=== PATIENT | male | born 1965 | race Caucasian/White ===

== ENCOUNTER 2021-08-08 13:22 | Inpatient (IN) | payer MEDICAID ==
[~2021-08-08] VITALS: Ht 185.4 cm; Wt 68.5 kg
[2021-08-08 13:26] VITALS: BP_SYST 139
[2021-08-08] MEDS ORDERED: AMPICILLIN SODIUM/SULBACTAM NA 1.5 GM in NS 50 ML IV ONE (15:15)
[2021-08-08] MEDS ORDERED: MORPHINE 4 MG INJ. 4 MG/ML VIAL IVP ONE (15:15)
[2021-08-08] MEDS ORDERED: AMPICILLIN SODIUM/SULBACTAM NA 1.5 GM VIAL ONE (15:23)
[2021-08-08 15:48] LABS: BASOPHILS # (AUTO) 0.1 K/uL (0.0-0.2); BASOPHILS % (AUTO) 0.6 % (0.0-2.0); EOSINOPHILS # (AUTO) 0.1 K/uL (0.0-0.4); EOSINOPHILS % (AUTO) 1.3 % (0.0-4.0); HEMATOCRIT 40.5 % (36-54); HEMOGLOBIN 13.5 g/dL (14.0-18.0); LYMPHOCYTES % (AUTO) 11.1 % (20.5-51.5); MEAN CORPUSCULAR HEMOGLOBIN 30 pg (27-31); MEAN CORPUSCULAR HGB CONC 33 % (32-36); MEAN CORPUSCULAR VOLUME 90 fL (79.0-98.0); MONOCYTES # (AUTO) 0.5 K/uL (0.0-1.0); MONOCYTES % (AUTO) 6.2 % (1.7-9.3); NEUTROPHILS % (AUTO) 80.8 % (40.0-70.0); PLATELET COUNT (AUTO) 295 K/uL (130-430); RED CELL DISTRIBUTION WIDTH 13.6 % (9.0-15.0); WHITE BLOOD COUNT (AUTO) 8.6 K/uL (4.8-10.8)
[2021-08-08 15:51] LABS: CALCIUM 7.9 mg/dL (8.4-11.0); CREATININE 2.21 mg/dL (0.55-1.30); POTASSIUM 4.4 mmol/L (3.5-5.1)
[2021-08-08 15:57] LABS: ALBUMIN 3.2 g/dL (3.4-4.8); TOTAL BILIRUBIN 0.2 mg/dL (0.0-1.0)
[2021-08-08] MEDS ORDERED: ONDANSETRON HCL 4 MG/2 ML VIAL IVP PRN (16:30)
[2021-08-08] MEDS ORDERED: MORPHINE 2 MG/ML INJ. SYRINGE IVP PRN (16:30)
[2021-08-08 17:46] VITALS: BP_SYST 132
[2021-08-08 20:04] VITALS: BP_SYST 133
[2021-08-08] MEDS ORDERED: PIPERACILLIN/TAZO 3.375 GM in NS 50 ML IV ONE (21:00)
[2021-08-08] MEDS ORDERED: NALOXONE HCL 0.4 MG/ML AMP (NARCAN) IVP PRN (22:30)
[2021-08-08] MEDS: MORPHINE 2 MG/ML INJ. SYRINGE IVP PRN (22:36)
[2021-08-08] MEDS ORDERED: PIPERACILLIN/TAZOBACTAM 3.375 GM/VIAL (ZOSYN) IV ONE (22:58)
[2021-08-09 00:15] VITALS: BP_SYST 157
[2021-08-09] MEDS: MORPHINE 2 MG/ML INJ. SYRINGE IVP PRN ×3 (02:39→10:21)
[2021-08-09 08:20] VITALS: BP_SYST 139
[2021-08-09 11:26] LABS: BASOPHILS % (AUTO) 0.7 % (0.0-2.0); EOSINOPHILS # (AUTO) 0.1 K/uL (0.0-0.4); EOSINOPHILS % (AUTO) 1.9 % (0.0-4.0); HEMATOCRIT 40.4 % (36-54); HEMOGLOBIN 13.4 g/dL (14.0-18.0); LYMPHOCYTES # (AUTO) 0.9 K/uL (1.0-5.5); MEAN CORPUSCULAR HEMOGLOBIN 30 pg (27-31); MEAN CORPUSCULAR HGB CONC 33 % (32-36); MEAN CORPUSCULAR VOLUME 90 fL (79.0-98.0); MONOCYTES # (AUTO) 0.6 K/uL (0.0-1.0); MONOCYTES % (AUTO) 8.8 % (1.7-9.3); NEUTROPHILS # (AUTO) 4.8 K/uL (1.8-7.7); NEUTROPHILS % (AUTO) 74.6 % (40.0-70.0); PLATELET COUNT (AUTO) 280 K/uL (130-430); RED CELL DISTRIBUTION WIDTH 13.3 % (9.0-15.0)
[2021-08-09 11:28] LABS: WHITE BLOOD COUNT (AUTO) 6.4 K/uL (4.8-10.8)
[2021-08-09 11:44] LABS: CALCIUM 8.1 mg/dL (8.4-11.0); CREATININE 2.17 mg/dL (0.55-1.30); POTASSIUM 4.6 mmol/L (3.5-5.1); TOTAL BILIRUBIN 0.4 mg/dL (0.0-1.0)
[2021-08-09 12:00] VITALS: BP_SYST 150
[2021-08-09] MEDS: MORPHINE 4 MG INJ. 4 MG/ML VIAL IVP PRN ×3 (14:11→23:06)
[2021-08-09 16:20] VITALS: BP_SYST 146
[2021-08-10 00:56] VITALS: BP_SYST 148
[2021-08-10 03:11] VITALS: BP_SYST 158
[2021-08-10] MEDS: MORPHINE 4 MG INJ. 4 MG/ML VIAL IVP PRN ×4 (03:19→18:06)
[2021-08-10 07:54] LABS: BASOPHILS % (AUTO) 0.6 % (0.0-2.0); EOSINOPHILS # (AUTO) 0.1 K/uL (0.0-0.4); EOSINOPHILS % (AUTO) 2.4 % (0.0-4.0); HEMATOCRIT 39.8 % (36-54); HEMOGLOBIN 13.2 g/dL (14.0-18.0); LYMPHOCYTES # (AUTO) 1.1 K/uL (1.0-5.5); LYMPHOCYTES % (AUTO) 19.7 % (20.5-51.5); MEAN CORPUSCULAR HEMOGLOBIN 30 pg (27-31); MEAN CORPUSCULAR HGB CONC 33 % (32-36); MEAN CORPUSCULAR VOLUME 89 fL (79.0-98.0); MONOCYTES # (AUTO) 0.6 K/uL (0.0-1.0); MONOCYTES % (AUTO) 10.1 % (1.7-9.3); NEUTROPHILS # (AUTO) 3.7 K/uL (1.8-7.7); NEUTROPHILS % (AUTO) 67.2 % (40.0-70.0); PLATELET COUNT (AUTO) 274 K/uL (130-430); RED BLOOD CELL COUNT(AUTO) 4.45 MIL/uL (4.2-6.2); RED CELL DISTRIBUTION WIDTH 13.4 % (9.0-15.0); WHITE BLOOD COUNT (AUTO) 5.5 K/uL (4.8-10.8)
[2021-08-10 07:56] LABS: CALCIUM 8.2 mg/dL (8.4-11.0); CREATININE 2.43 mg/dL (0.55-1.30); POTASSIUM 4.5 mmol/L (3.5-5.1)
[2021-08-10 08:00] VITALS: BP_SYST 158
[2021-08-10] MEDS: ENOXAPARIN SODIUM 40 MG/0.4 ML SYRINGE SUBCUT SCH ×2 (08:21→09:00)
[2021-08-10] MEDS: CEFEPIME 2 GM in D5W 100 ML IV ONE ×3 (13:28→18:07)
[2021-08-10] MEDS: LINEZOLID 300 ML IV ONE ×2 (13:50→18:07)
[2021-08-10] MEDS: CEFEPIME 2 GM in D5W 100 ML IV SCH (20:46)
[2021-08-10] MEDS ORDERED: NALOXONE HCL 0.4 MG/ML AMP (NARCAN) IVP PRN (21:00)
[2021-08-10] MEDS: LINEZOLID 300 ML IV SCH (21:00)
[2021-08-10] MEDS: HYDROmorphone 1 MG/ML INJ. CARTRIDGE IVP PRN (23:49)
[2021-08-11 00:30] VITALS: BP_SYST 151
[2021-08-11] MEDS: MORPHINE 2 MG/ML INJ. SYRINGE IVP PRN ×2 (02:18→22:55)
[2021-08-11] MEDS: HYDROmorphone 1 MG/ML INJ. CARTRIDGE IVP PRN ×4 (04:57→20:36)
[2021-08-11 08:00] VITALS: BP_SYST 156
[2021-08-11] MEDS: CEFEPIME 2 GM in D5W 100 ML IV SCH ×2 (08:13→20:36)
[2021-08-11] MEDS: ENOXAPARIN SODIUM 40 MG/0.4 ML SYRINGE SUBCUT SCH ×2 (09:00→09:59)
[2021-08-11] MEDS: LINEZOLID 300 ML IV SCH ×4 (09:00→22:54)
[2021-08-11 11:37] VITALS: BP_SYST 132
[2021-08-11 12:00] VITALS: BP_SYST 132
[2021-08-11 16:37] VITALS: BP_SYST 163
[2021-08-11 20:00] VITALS: BP_SYST 143
[2021-08-12] MEDS: HYDROmorphone 1 MG/ML INJ. CARTRIDGE IVP PRN ×3 (00:33→09:58)
[2021-08-12 02:06] VITALS: BP_SYST 158
[2021-08-12 06:41] LABS: BASOPHILS % (AUTO) 0.7 % (0.0-2.0); EOSINOPHILS # (AUTO) 0.1 K/uL (0.0-0.4); EOSINOPHILS % (AUTO) 2.2 % (0.0-4.0); HEMATOCRIT 37.9 % (36-54); HEMOGLOBIN 12.6 g/dL (14.0-18.0); LYMPHOCYTES % (AUTO) 20.8 % (20.5-51.5); MEAN CORPUSCULAR HEMOGLOBIN 30 pg (27-31); MEAN CORPUSCULAR HGB CONC 33 % (32-36); MEAN CORPUSCULAR VOLUME 89 fL (79.0-98.0); MONOCYTES # (AUTO) 0.5 K/uL (0.0-1.0); MONOCYTES % (AUTO) 10.7 % (1.7-9.3); NEUTROPHILS # (AUTO) 3.3 K/uL (1.8-7.7); NEUTROPHILS % (AUTO) 65.6 % (40.0-70.0); PLATELET COUNT (AUTO) 258 K/uL (130-430); RED BLOOD CELL COUNT(AUTO) 4.24 MIL/uL (4.2-6.2); RED CELL DISTRIBUTION WIDTH 13.3 % (9.0-15.0)
[2021-08-12 07:01] LABS: CALCIUM 8.1 mg/dL (8.4-11.0); CREATININE 2.04 mg/dL (0.55-1.30); POTASSIUM 3.8 mmol/L (3.5-5.1)
[2021-08-12] MEDS: ENOXAPARIN SODIUM 40 MG/0.4 ML SYRINGE SUBCUT SCH (09:57)
[2021-08-12] MEDS: CEFEPIME 2 GM in D5W 100 ML IV SCH ×2 (09:59→22:50)
[2021-08-12] MEDS ORDERED: HYDROcodone/ACETAMIN 5-325 MG TAB (NORCO/ VICODIN) PO PRN (11:15)
[2021-08-12] MEDS: LINEZOLID 300 ML IV SCH ×2 (11:24→22:51)
[2021-08-12 11:30] VITALS: BP_SYST 140
[2021-08-12] MEDS: HYDROmorphone 2 MG/ML VIAL IVP PRN ×3 (14:05→23:31)
[2021-08-12 15:42] VITALS: BP_SYST 137
[2021-08-12 16:00] VITALS: BP_SYST 139
[2021-08-12] MEDS: PANTOPRAZOLE SODIUM 40 MG/VIAL (PROTONIX) IVP SCH (21:00)
[2021-08-12] MEDS: CARVEDILOL 3.125 MG TABLET (COREG) PO SCH (22:52)
[2021-08-13 02:00] VITALS: BP_SYST 117
[2021-08-13] MEDS: HYDROmorphone 2 MG/ML VIAL IVP PRN ×5 (05:36→22:43)
[2021-08-13 07:10] LABS: CREATININE 2.07 mg/dL (0.55-1.30); PHOSPHORUS 5.1 mg/dL (2.7-4.5); POTASSIUM 4.2 mmol/L (3.5-5.1)
[2021-08-13 07:44] LABS: BASOPHILS % (AUTO) 0.6 % (0.0-2.0); EOSINOPHILS # (AUTO) 0.1 K/uL (0.0-0.4); EOSINOPHILS % (AUTO) 2.2 % (0.0-4.0); HEMATOCRIT 40.8 % (36-54); HEMOGLOBIN 13.3 g/dL (14.0-18.0); LYMPHOCYTES # (AUTO) 1.1 K/uL (1.0-5.5); MEAN CORPUSCULAR HEMOGLOBIN 29 pg (27-31); MEAN CORPUSCULAR HGB CONC 33 % (32-36); MEAN CORPUSCULAR VOLUME 90 fL (79.0-98.0); MONOCYTES # (AUTO) 0.6 K/uL (0.0-1.0); MONOCYTES % (AUTO) 9.3 % (1.7-9.3); NEUTROPHILS # (AUTO) 4.5 K/uL (1.8-7.7); NEUTROPHILS % (AUTO) 70.9 % (40.0-70.0); PLATELET COUNT (AUTO) 308 K/uL (130-430); RED BLOOD CELL COUNT(AUTO) 4.53 MIL/uL (4.2-6.2); RED CELL DISTRIBUTION WIDTH 13.1 % (9.0-15.0); WHITE BLOOD COUNT (AUTO) 6.3 K/uL (4.8-10.8)
[2021-08-13 08:00] VITALS: BP_SYST 145
[2021-08-13] MEDS ORDERED: MAGNESIUM CITRATE 300 ML ORAL SOLUTION PO ONE (08:00)
[2021-08-13] MEDS: LINEZOLID 300 ML IV SCH ×2 (09:00→14:14)
[2021-08-13] MEDS: PANTOPRAZOLE SODIUM 40 MG/VIAL (PROTONIX) IVP SCH ×3 (09:00→22:09)
[2021-08-13] MEDS: CARVEDILOL 3.125 MG TABLET (COREG) PO SCH ×3 (09:00→22:14)
[2021-08-13] MEDS: ENOXAPARIN SODIUM 40 MG/0.4 ML SYRINGE SUBCUT SCH (09:00)
[2021-08-13] MEDS: CEFEPIME 2 GM in D5W 100 ML IV SCH ×2 (10:29→22:09)
[2021-08-13] MEDS ORDERED: SEVELAMER CARBONATE 800 MG TABLET PO ONE (14:15)
[2021-08-13 16:00] VITALS: BP_SYST 154
[2021-08-13] MEDS ORDERED: BISACODYL 5 MG TABLET.DR (DULCOLAX) PO ONE (17:00)
[2021-08-13] MEDS ORDERED: GOLYTELY / COLYTE SOLUTION 4 LITERS PO ONE (18:00)
[2021-08-13] MEDS: SEVELAMER CARBONATE 800 MG TABLET PO SCH (18:43)
[2021-08-13 20:00] VITALS: BP_SYST 161
[2021-08-13 20:01] LABS: BILIRUBIN,URINE NEGATIVE (NEGATIVE); BLOOD, URINE NEGATIVE (NEGATIVE); CLARITY/URINE CLEAR (CLEAR); COLOR,URINE YELLOW (YELLOW); GLUCOSE,URINE NEGATIVE (NEGATIVE); KETONES,URINE NEGATIVE (NEGATIVE); LEUKOCYTE ESTERASE ,URINE NEGATIVE (NEGATIVE); NITRITE, URINE NEGATIVE (NEGATIVE); PROTEIN URINE NEGATIVE (NEGATIVE); UROBILINOGEN,URINE 0.2 (0.2-1.0)
[2021-08-14] VITALS: BP_SYST 146
[2021-08-14] MEDS: LINEZOLID 300 ML IV SCH (01:41)
[2021-08-14] MEDS: HYDROmorphone 2 MG/ML VIAL IVP PRN ×5 (03:10→23:47)
[2021-08-14] MEDS ORDERED: DIPHENHYDRAMINE INJ 50 MG/ML VIAL IVP ONE (03:30)
[2021-08-14 03:59] LABS: BASOPHILS % (AUTO) 0.6 % (0.0-2.0); EOSINOPHILS # (AUTO) 0.1 K/uL (0.0-0.4); EOSINOPHILS % (AUTO) 2.6 % (0.0-4.0); HEMATOCRIT 39.9 % (36-54); HEMOGLOBIN 13.2 g/dL (14.0-18.0); LYMPHOCYTES # (AUTO) 0.9 K/uL (1.0-5.5); LYMPHOCYTES % (AUTO) 18.2 % (20.5-51.5); MEAN CORPUSCULAR HEMOGLOBIN 30 pg (27-31); MEAN CORPUSCULAR HGB CONC 33 % (32-36); MEAN CORPUSCULAR VOLUME 89 fL (79.0-98.0); MONOCYTES # (AUTO) 0.5 K/uL (0.0-1.0); MONOCYTES % (AUTO) 9.6 % (1.7-9.3); NEUTROPHILS # (AUTO) 3.4 K/uL (1.8-7.7); PLATELET COUNT (AUTO) 226 K/uL (130-430); RED BLOOD CELL COUNT(AUTO) 4.47 MIL/uL (4.2-6.2); RED CELL DISTRIBUTION WIDTH 13.2 % (9.0-15.0); WHITE BLOOD COUNT (AUTO) 4.9 K/uL (4.8-10.8)
[2021-08-14 04:00] VITALS: BP_SYST 151
[2021-08-14 04:38] LABS: CALCIUM 8.6 mg/dL (8.4-11.0); CREATININE 2.04 mg/dL (0.55-1.30); POTASSIUM 3.9 mmol/L (3.5-5.1)
[2021-08-14 04:50] LABS: PROTHROMBIN TIME 10.4 SECS (9.5-12.5)
[2021-08-14] MEDS ORDERED: MAGNESIUM CITRATE 300 ML ORAL SOLUTION PO ONE (07:30)
[2021-08-14] MEDS ORDERED: MEPERIDINE 100 MG INJ. 100 MG/ML VIAL ONE (07:38)
[2021-08-14] MEDS ORDERED: MIDAZOLAM HCL 5 MG/5 ML VIAL ONE (07:39)
[2021-08-14] MEDS ORDERED: SIMETHICONE 40 MG/0.6 ML ML ONE (07:41)
[2021-08-14 08:00] VITALS: BP_SYST 154
[2021-08-14] MEDS: SEVELAMER CARBONATE 800 MG TABLET PO SCH ×3 (08:25→17:47)
[2021-08-14] MEDS: PANTOPRAZOLE SODIUM 40 MG/VIAL (PROTONIX) IVP SCH ×2 (08:26→21:00)
[2021-08-14] MEDS: CARVEDILOL 3.125 MG TABLET (COREG) PO SCH ×3 (08:30→21:25)
[2021-08-14] MEDS: CEFEPIME 2 GM in D5W 100 ML IV SCH ×2 (08:38→21:00)
[2021-08-14 12:00] VITALS: BP_SYST 150
[2021-08-14 16:16] VITALS: BP_SYST 141
[2021-08-14 21:37] VITALS: BP_SYST 162
[2021-08-15 03:58] VITALS: BP_SYST 144
[2021-08-15 05:33] VITALS: BP_SYST 153
[2021-08-15] MEDS: HYDROmorphone 2 MG/ML VIAL IVP PRN ×4 (05:45→21:44)
[2021-08-15 06:59] LABS: BASOPHILS % (AUTO) 0.7 % (0.0-2.0); EOSINOPHILS # (AUTO) 0.1 K/uL (0.0-0.4); HEMATOCRIT 41.6 % (36-54); HEMOGLOBIN 13.7 g/dL (14.0-18.0); LYMPHOCYTES # (AUTO) 1.1 K/uL (1.0-5.5); MEAN CORPUSCULAR HEMOGLOBIN 30 pg (27-31); MEAN CORPUSCULAR HGB CONC 33 % (32-36); MEAN CORPUSCULAR VOLUME 89 fL (79.0-98.0); MONOCYTES # (AUTO) 0.5 K/uL (0.0-1.0); MONOCYTES % (AUTO) 8.6 % (1.7-9.3); NEUTROPHILS # (AUTO) 3.8 K/uL (1.8-7.7); NEUTROPHILS % (AUTO) 68.7 % (40.0-70.0); PLATELET COUNT (AUTO) 275 K/uL (130-430); RED BLOOD CELL COUNT(AUTO) 4.65 MIL/uL (4.2-6.2); RED CELL DISTRIBUTION WIDTH 13.2 % (9.0-15.0); WHITE BLOOD COUNT (AUTO) 5.5 K/uL (4.8-10.8)
[2021-08-15 07:41] LABS: CALCIUM 8.8 mg/dL (8.4-11.0); CREATININE 2.01 mg/dL (0.55-1.30); POTASSIUM 3.9 mmol/L (3.5-5.1)
[2021-08-15 07:59] LABS: ALBUMIN 3.4 g/dL (3.4-4.8); THYROID STIMULATING HORMONE 0.95 uIu/mL (0.36-3.74); TOTAL BILIRUBIN 0.3 mg/dL (0.0-1.0)
[2021-08-15] MEDS: SEVELAMER CARBONATE 800 MG TABLET PO SCH ×2 (08:00→12:00)
[2021-08-15] MEDS: CEFEPIME 2 GM in D5W 100 ML IV SCH ×2 (09:00→21:00)
[2021-08-15] MEDS: PANTOPRAZOLE SODIUM 40 MG/VIAL (PROTONIX) IVP SCH ×2 (09:00→21:00)
[2021-08-15] MEDS: CARVEDILOL 3.125 MG TABLET (COREG) PO SCH ×2 (09:00→21:43)
[2021-08-15 09:55] VITALS: BP_SYST 148
[2021-08-15 12:00] VITALS: BP_SYST 146
[2021-08-15 16:36] VITALS: BP_SYST 142
[2021-08-15 21:30] VITALS: BP_SYST 160
[2021-08-16 00:45] VITALS: BP_SYST 144
[2021-08-16] MEDS: HYDROmorphone 2 MG/ML VIAL IVP PRN ×6 (03:02→23:43)
[2021-08-16 08:00] VITALS: BP_SYST 139
[2021-08-16] MEDS: SEVELAMER CARBONATE 800 MG TABLET PO SCH ×4 (08:00→17:30)
[2021-08-16] MEDS: AMOXICILLIN/CLAVULANATE POTASSIUM 875 MG TABLET PO SCH ×2 (08:43→21:21)
[2021-08-16] MEDS: CARVEDILOL 3.125 MG TABLET (COREG) PO SCH ×2 (08:44→21:23)
[2021-08-16] MEDS: PANTOPRAZOLE SODIUM 40 MG/VIAL (PROTONIX) IVP SCH ×2 (08:44→21:00)
[2021-08-16 11:00] VITALS: BP_SYST 150
[2021-08-16 16:00] VITALS: BP_SYST 132
[2021-08-16 19:50] VITALS: BP_SYST 156
[2021-08-16] MEDS: DOCUSATE SODIUM 100 MG CAPSULE PO SCH (23:41)
[2021-08-16] MEDS ORDERED: DOCUSATE SODIUM 100 MG CAPSULE PO ONE (23:41)
[2021-08-17] VITALS: BP_SYST 147
[2021-08-17] MEDS: HYDROmorphone 2 MG/ML VIAL IVP PRN ×3 (03:54→12:54)
[2021-08-17 08:00] VITALS: BP_SYST 151
[2021-08-17] MEDS: CARVEDILOL 3.125 MG TABLET (COREG) PO SCH (08:50)
[2021-08-17] MEDS: PANTOPRAZOLE SODIUM 40 MG/VIAL (PROTONIX) IVP SCH ×2 (08:50→09:00)
[2021-08-17] MEDS: SEVELAMER CARBONATE 800 MG TABLET PO SCH ×2 (08:50→12:46)
[2021-08-17] MEDS: AMOXICILLIN/CLAVULANATE POTASSIUM 875 MG TABLET PO SCH (08:56)
[2021-08-17] MEDS: DOCUSATE SODIUM 100 MG CAPSULE PO SCH (09:49)
[2021-08-17] MEDS ORDERED: AMOX-423 PO (11:54)
[2021-08-17 12:22] VITALS: BP_SYST 140
[2021-08-17 14:42] VITALS: BP_SYST 142
== END 2021-08-17 15:20 | DRG 383 ==
LOC: SED 13:22 → SMU 16:23
PROVIDERS: ADMIT Internal Medicine; ATTEND Internal Medicine
DX: L03.116 Cellulitis of left lower limb (principal); N17.0 Acute kidney failure with tubular necrosis; E44.1 Mild protein-calorie malnutrition; K92.1 Melena; Q61.2 Polycystic kidney, adult type; D64.9 Anemia, unspecified; F12.90 Cannabis use, unspecified, uncomplicated; F17.210 Nicotine dependence, cigarettes, uncomplicated; F32.A Depression, unspecified; K59.00 Constipation, unspecified; Z96.642 Presence of left artificial hip joint; I12.9 Hypertensive chronic kidney disease with stage 1 through stage 4 chronic kidney disease, or unspecified chronic kidney disease; Z20.822 Contact with and (suspected) exposure to COVID-19; N18.30 Chronic kidney disease, stage 3 unspecified; Z79.899 Other long term (current) drug therapy; Z59.00 Homelessness unspecified; Z88.1 Allergy status to other antibiotic agents; Z88.8 Allergy status to other drugs, medicaments and biological substances; Z87.81 Personal history of (healed) traumatic fracture; Z68.1 Body mass index [BMI] 19.9 or less, adult
CPT/HCPCS: 36415; 71045; 73590-TC; 76770; 80048; 80053; 80061; 81003; 82043; 82570; 83605; 83735; 84100; 84302; 84443; 84484; 85025; 85610-TC; 85651-TC; 85730-TC; 87040; 93005; 93306; 96365; 96375; 97116-GP; 97530-GP; 99285; C9113; J0295; J0692; J1170; J1650; J2020; J2175; J2250; J2270; J2543; J7060